=== PATIENT | female | born 1990 | race Caucasian/White ===

== ENCOUNTER → 2022-09-16 14:02 | Outpatient (CLI) | payer OTHER, SELFPAY ==
--- NOTE | 2022-09-16 14:10 | DI.MRI.S_ITS ---
PROCEDURE: MR LOWER LEG RT WO CON INDICATIONS: pain in right knee TECHNIQUE: Noncontrast coronal and sagittal T1 spin echo and STIR; axial T1 spin echo and T2 fast spin echo with fat saturation through the right tibia and fibula. COMPARISON: [facility], MR, MR KNEE RT WO CON, 09/16/2022, 15:01. FINDINGS: Image quality: There is mild inhomogeneous fat saturation. Bones: The visualized bone marrow demonstrates normal overall signal. The overlying cortex appears intact. No fractures lines or intra-osseous mass lesions. No bone contusions or bony erosions. No periosteal reaction. Soft tissues: The scanned muscles demonstrate normal overall bulk and internal signal. Subcutaneous tissues appear normal as well. No soft tissue masses are present. IMPRESSION: 1. No evidence of stress reaction or stress fracture. Dictated by: Fly Jason M.D. on 09/18/2022 at 2:32 Approved by: Fly Jason M.D. on 09/18/2022 at 2:35
--- NOTE | 2022-09-16 14:10 | DI.MRI.S_ITS ---
PROCEDURE: MR KNEE RT WO CON INDICATIONS: pain in right knee TECHNIQUE: Noncontrast sagittal PD fast spin echo and T2 fast spin echo with fat saturation, sagittal 3-D FLASH with fat saturation; coronal T1 spin echo and PD fast spin echo with fat saturation, and axial PD fast spin echo with fat saturation through the knee. COMPARISON: None. FINDINGS: Image quality: There is mild inhomogeneous fat saturation. Menisci: The medial and lateral menisci demonstrate normal morphology and internal signal. The meniscal root ligaments appear intact. Cruciate ligaments: The anterior and posterior cruciate ligaments appear intact. Medial structures: The medial collateral ligament appears intact. The semimembranosus tendon insertions and meniscocapsular junction appear intact. Visualized portions of the pes anserinus tendons appear intact without associated bursal fluid collections. Lateral structures: The lateral collateral ligament, long and short heads of the biceps femoris tendon appear intact. The popliteus tendon appears intact. Iliotibial band appears normal. Anterior structures: The quadriceps and patellar tendons appear intact. There is slight lateral tilt of the patella. No femoral trochlear dysplasia or ventral trochlear prominence. There is minimal edema superolaterally in the infrapatellar fat pad. Bones and cartilage: No bone marrow contusions or fractures. The cartilage of the medial and lateral femorotibial compartments, as well as the patellofemoral compartment, appears preserved in overall thickness. Joint space: There is physiologic knee joint fluid. No Strickland's cyst. Normal appearing synovial plicae are incidentally noted. IMPRESSION: 1. Minimal edema superolaterally in the infrapatellar fat pad suggestive of mild impingement. Dictated by: Fly Jason M.D. on 09/18/2022 at 1:54 Approved by: Fly Jason M.D. on 09/18/2022 at 1:58
== END ==
PROVIDERS: PCP Family Medicine; Referring Provider Family Medicine; Visit Provider Family Medicine
DX: M25.561 Pain in right knee (principal)
CPT/HCPCS: 73718; 73721

== ENCOUNTER 2024-02-27 11:15 | Outpatient (RCR) | payer OTHER, SELFPAY ==
--- NOTE | 2023-11-07 13:22 | PT.OIE ---
Current Diagnoses Other specified disorders of muscle (11/07/23) Pelvic muscle wasting (11/07/23) Unspecified urinary incontinence (11/07/23) Visit Care Team Role Provider Type Fiorella Cruz MD Family Provider Non-Staff Primary Care Provider Specialty: Family Practice Address: [address] [place] [address], [id number] Email: Aline oSsa MD Attending Provider Non-Staff Referring Provider Specialty: INSULATION TECHNICIAN Address: [facility]?, [address] [place], [address] Email: Physical Therapy Initial Evaluation PT-OP-A Visit Information Start: 11/07/23 09:04 Freq: Status: Active Protocol: Document 11/07/23 09:45 [facility] (Rec: 11/07/23 10:20 [facility] [id number]) Out-Patient Physical Therapy Visit Information Visit Information Visit Type Initial Evaluation Visit Start Time 09:45 Visit Stop Time 10:30 Visit Number 1 Evaluation Information Evaluation Date 11/07/23 PT-OP-B Current Condition Start: 11/07/23 09:04 Freq: Status: Active Protocol: Document 11/07/23 09:45 [facility] (Rec: 11/07/23 10:20 [facility] [id number]) Current Condition History of Current Condition Onset Date with Current Complaints urinary stress incontinence, pubic pain, L SI pain with History of Current Condition 6 weeks , 8 lb vaginal , one suture on left labia. She started having urine leakage at 14 weeks and she likes to run. She started having to stop frequently, she continued running 28 weeks pregnanct. She would like to get back to running 4-5 miles. With previous PT she noted that she was tight in her pelvic floor. Every other day or every 2 days she has a bowel movement. She will feel pelvic pressure with bowel movement. SHe does use a squatty potty. She had a lot of hip pain and tightness during and she does have stretches. SHe does have some leakage with sneezing and coughing and occasionally with jumping. SHe had a IUD placed on and intercourse 3 days later. She noted pain and bleeding 24 hours afterwards. She felt right sided vaginal pain afterwards. SHe does have some pubic bone pain that she notices after a walk. SHe did have some left sided SI pain with running. Treatment Goals Patient/Caregiver Goals Tita's goals include being able to return to running without leakage Current Functional Impairments (Reported) Functional Limitations- Recreation/ unable to run at this time due Hobbies to weakness, urinary leakage PT-OP-C Subjective Start: 11/07/23 09:04 Freq: Status: Active Protocol: Document 11/07/23 09:45 [facility] (Rec: 11/07/23 13:18 [facility] [id number]) Patient Questionnaires Pelvic Pain and Urgency/Frequency Patient Symptom Scale Pelvic Pain Score 11 OP-PT Pain Assessment Location pubic symphysis Intensity 2 Scale Used Numeric (0 - 10) Description- Other after walking PT-OP-F Manual Assessment Start: 11/07/23 09:04 Freq: Status: Active Protocol: Document 11/07/23 09:45 [facility] (Rec: 11/07/23 12:57 [facility] [id number]) Manual Assessments Soft Tissue Assessment Soft Tissue Mobility Assessment vaginal tissue still healing from with small amounts of bleeding from the right vaginal side wall. right sided iliopsoas and adductor muscle tightness Joint Mobility Assessment Joint Mobility Assessment tenderness at the pubic symphysis and pt reports soreness here after walking PT-OP-I Pelvic Floor Start: 11/07/23 09:04 Freq: Status: Active Protocol: Document 11/07/23 09:45 [facility] (Rec: 11/07/23 12:57 [facility] [id number]) Pelvic Floor Assessment Pelvic Clock Pelvic Clock 12-3 Atrophy Pelvic Clock 3-6 Atrophy Pelvic Clock 6-9 Atrophy Pelvic Clock 9-12 Atrophy Pelvic Clock Other right lateral wall still healing from vaginal delivery 6 weeks ago, pt had intercourse approx 4 days ago and experienced pain and then has had some bleeding following Contraction Ability Voluntary Contraction Weak Voluntary Relaxation Weak Manual Muscle Testing Left 2 Manual Muscle Testing Right 2 Manual Muscle Testing Anterior 1 Manual Muscle Testing Posterior 2 Muscle Endurance (Seconds) 3 PT-OP-K Range of Motion Start: 11/07/23 13:19 Freq: Status: Active Protocol: Document 11/07/23 09:45 [facility] (Rec: 11/07/23 13:20 [facility] [id number]) Hip Goniometric Range of Motion Hip ROM Limitations Hip ROM Limitations Soft Tissue Tightness Comments right sided + stef test for iliopsoas tightness adductor guarding and tightness on the right side PT-OP-Q Treatments Start: 11/07/23 09:04 Freq: Status: Active Protocol: Document 11/07/23 09:45 [facility] (Rec: 11/07/23 12:54 [facility] [id number]) Therapeutic Exercises Supine Exercises supine ball squeeze with pelvic floor engagement Reps/Minutes x 10 reps holding 5 seconds modified squat stretch Side bilateral Reps/Minutes hold 1-2 minutes PT-OP-T Assessment and Plan Start: 11/07/23 09:04 Freq: Status: Active Protocol: Document 11/07/23 09:45 [facility] (Rec: 11/07/23 13:00 [facility] [id number]) Physical Therapy Assessment Rehab Potential Rehabilitation Potential Excellent Evaluation Complexity Number of Personal Factors/Comorbidities 0 Number of Body Systems Impaired 1-2 Clinical Presentation at Evaluation Stable Impairments Impairments Activity Tolerance,Pain,Soft Tissue Mobility,Strength,Tone Other Impairments urinary stress incontinence Goals 3 Impairment SI joint instability with c/o pain at the pubic symphysis after walking Group Home Goal (LTG) With improved SI stability Tita is no longer c/o pubic symphysis pain after walking or as she returns to running LTG Duration 12 weeks 2 Impairment Decreased pelvic floor endurance Short Term Goal (STG) Tita is able to sustain a pelvic floor contraction x 10 seconds in supine STG Duration 4 Acid Cutter Goal (LTG) Tita is able to sustain a pelvic floor contraction in standing x5 seconds LTG Duration 12 weeks 1 Impairment core weakness with urinary leakage limiting her abilty to run Short Term Goal (STG) Tita is educated on a home stabilization program to support the bladder and improve core strength STG Duration 4 weeks Group Home Goal (LTG) Tita is able to return to a running program without urinary leakage LTG Duration 12 weeks Assessment Summary Assessment Tita is a 32 year old female 6 weeks post with a vaginal delivery. She is a runner and likes to run 4 -5 miles 3-4 days per week. She has not returned to running yet post but would like to and was experiencing urinary leakage with running during her . Tita has tried out walking and notes she will feel pubic bone discomfort for a while after her walks. She had a IUD put in last week and did have intercourse for the first time since childbirth. She reports at a point she had pain and then has been experiencing light bleeding since then. With exam today Tita does present with post SI joint instability and tenderness to palpation at the pubic symphysis. WIth pelvic floor examination she is able to facilitate all leyva of the levator ani however she is weakest on the anterior wall and primarily right anterior wall. She has difficulty relaxing the lateral leyva once she has tightened her pelvic floor. Tita has difficulty sustaining a pelvic floor contraction for more than a few seconds. There is a small amount of vaginal tissue irritation on the right lateral wall with a small amount of bleeding. We talked about waiting another week prior to intercourse again and I did start her with some gentle stabilization exercises of the pelvic floor and SI joint today. Treatment will work on improving pelvic floor strength and endurance as well as transverse abdominal strengthening to provide good pelvic support and eventually get her back to a running program. She is a good candidate for PT Physical Therapy Plan Frequency and Duration Frequency of Treatment 1x/Week Duration of treatment (weeks) 12 Plan of Care Start Date 11/07/23 Plan of Care End Date 01/30/24 Therapeutic Interventions Therapeutic Interventions Home Exercise Program,Manual Therapy,Neuromuscular Re- education,Self-Care/Home Management,Therapeutic Exercises Modalities Biofeedback
--- NOTE | 2023-11-07 13:23 | PT.OPPOC ---
Physical, Occupational & Speech Therapy At [facility] Current Diagnoses Other specified disorders of muscle (11/07/23) Pelvic muscle wasting (11/07/23) Unspecified urinary incontinence (11/07/23) Visit Care Team Role Provider Type Fiorella Cruz MD Family Provider Non-Staff Primary Care Provider Specialty: Family Practice Address: [address] [place] [address], [address] Email: Aline Sosa MD Attending Provider Non-Staff Referring Provider Specialty: OPTICAL ADVISOR Address: [facility]?, [address] [facility], [place], [address] Email: Plan Of Care PT-OP-T Assessment and Plan Start: 11/07/23 09:04 Freq: Status: Active Protocol: Document 11/07/23 09:45 [facility] (Rec: 11/07/23 13:00 [facility] [id number]) Physical Therapy Assessment Rehab Potential Rehabilitation Potential Excellent Evaluation Complexity Number of Personal Factors/Comorbidities 0 Number of Body Systems Impaired 1-2 Clinical Presentation at Evaluation Stable Impairments Impairments Activity Tolerance,Pain,Soft Tissue Mobility,Strength,Tone Other Impairments urinary stress incontinence Goals 3 Impairment SI joint instability with c/o pain at the pubic symphysis after walking Long-Term Goal (LTG) With improved SI stability Tita is no longer c/o pubic symphysis pain after walking or as she returns to running LTG Duration 12 weeks 2 Impairment Decreased pelvic floor endurance Short Term Goal (STG) Tita is able to sustain a pelvic floor contraction x 10 seconds in supine STG Duration 4 Vp Outcomes Goal (LTG) Tita is able to sustain a pelvic floor contraction in standing x5 seconds LTG Duration 12 weeks 1 Impairment core weakness with urinary leakage limiting her abilty to run Short Term Goal (STG) Tiat is educated on a home stabilization program to support the bladder and improve core strength STG Duration 4 weeks Vp Outcomes Goal (LTG) Tita is able to return to a running program without urinary leakage LTG Duration 12 weeks Assessment Summary Assessment Tita is a 32 year old female 6 weeks post with a vaginal delivery. She is a runner and likes to run 4 -5 miles 3-4 days per week. She has not returned to running yet post but would like to and was experiencing urinary leakage with running during her . Tita has tried out walking and notes she will feel pubic bone discomfort for a while after her walks. She had a IUD put in last week and did have intercourse for the first time since childbirth. She reports at a point she had pain and then has been experiencing light bleeding since then. With exam today Tita does present with post SI joint instability and tenderness to palpation at the pubic symphysis. WIth pelvic floor examination she is able to facilitate all leyva of the levator ani however she is weakest on the anterior wall and primarily right anterior wall. She has difficulty relaxing the lateral leyva once she has tightened her pelvic floor. Tita has difficulty sustaining a pelvic floor contraction for more than a few seconds. There is a small amount of vaginal tissue irritation on the right lateral wall with a small amount of bleeding. We talked about waiting another week prior to intercourse again and I did start her with some gentle stabilization exercises of the pelvic floor and SI joint today. Treatment will work on improving pelvic floor strength and endurance as well as transverse abdominal strengthening to provide good pelvic support and eventually get her back to a running program. She is a good candidate for PT Physical Therapy Plan Frequency and Duration Frequency of Treatment 1x/Week Duration of treatment (weeks) 12 Plan of Care Start Date 11/07/23 Plan of Care End Date 01/30/24 Therapeutic Interventions Therapeutic Interventions Home Exercise Program,Manual Therapy,Neuromuscular Re- education,Self-Care/Home Management,Therapeutic Exercises Modalities Biofeedback Plan of Care Dates Plan of Care Start Date 11/07/23 Plan of Care End Date 01/30/24 Electronically Signed by: Pia Washington, PT 11/07/23 1755 If you are in agreement with this Plan of Care, please return a signed and dated copy. I have reviewed this Plan of Care and certify that the skilled therapy services above are required to meet the patient?s needs. Physician Signature Date Printed Name and Credentials Clinical Instructor Signature Printed Name and Credentials
--- NOTE | 2023-11-21 12:29 | PT.OTN ---
Current Diagnoses Other specified disorders of muscle (11/21/23) Pelvic muscle wasting (11/21/23) Unspecified urinary incontinence (11/21/23) Physical Therapy Treatment Note PT-OP-A Visit Information Start: 11/07/23 09:04 Freq: Status: Active Protocol: Document 11/21/23 08:14 [facility] (Rec: 11/21/23 09:03 [facility] [id number]) Out-Patient Physical Therapy Visit Information Visit Information Visit Type Treatment Note Visit Start Time 08:15 Visit Stop Time 09:00 Visit Number 2 PT-OP-B Current Condition Start: 11/07/23 09:04 Freq: Status: Active Protocol: Document 11/07/23 09:45 [facility] (Rec: 11/07/23 10:20 [facility] [id number]) Current Condition History of Current Condition Onset Date with Current Complaints urinary stress incontinence, pubic pain, L SI pain with History of Current Condition 6 weeks , 8 lb vaginal , one suture on left labia. She started having urine leakage at 14 weeks and she likes to run. She started having to stop frequently, she continued running 28 weeks pregnanct. She would like to get back to running 4-5 miles. With previous PT she noted that she was tight in her pelvic floor. Every other day or every 2 days she has a bowel movement. She will feel pelvic pressure with bowel movement. SHe does use a squatty potty. She had a lot of hip pain and tightness during and she does have stretches. SHe does have some leakage with sneezing and coughing and occasionally with jumping. SHe had a IUD placed on and intercourse 3 days later. She noted pain and bleeding 24 hours afterwards. She felt right sided vaginal pain afterwards. SHe does have some pubic bone pain that she notices after a walk. SHe did have some left sided SI pain with running. Treatment Goals Patient/Caregiver Goals Tita's goals include being able to return to running without leakage Current Functional Impairments (Reported) Functional Limitations- Recreation/ unable to run at this time due Hobbies to weakness, urinary leakage PT-OP-C Subjective Start: 11/07/23 09:04 Freq: Status: Active Protocol: Document 11/21/23 08:14 [facility] (Rec: 11/21/23 09:03 [facility] [id number]) OP-PT Subjective Patient Comments Patient Comments still having pain during intercourse and will be scheduled for a ultrasound to check on iud placement she notes she is walking 3-5 mile walks and is not having the pubic pain Patient Reported Progress Improving PT-OP-F Manual Assessment Start: 11/07/23 09:04 Freq: Status: Active Protocol: Document 11/07/23 09:45 [facility] (Rec: 11/07/23 12:57 [facility] [id number]) Manual Assessments Soft Tissue Assessment Soft Tissue Mobility Assessment vaginal tissue still healing from with small amounts of bleeding from the right vaginal side wall. right sided iliopsoas and adductor muscle tightness Joint Mobility Assessment Joint Mobility Assessment tenderness at the pubic symphysis and pt reports soreness here after walking PT-OP-I Pelvic Floor Start: 11/07/23 09:04 Freq: Status: Active Protocol: Document 11/07/23 09:45 [facility] (Rec: 11/07/23 12:57 [facility] [id number]) Pelvic Floor Assessment Pelvic Clock Pelvic Clock 12-3 Atrophy Pelvic Clock 3-6 Atrophy Pelvic Clock 6-9 Atrophy Pelvic Clock 9-12 Atrophy Pelvic Clock Other right lateral wall still healing from vaginal delivery 6 weeks ago, pt had intercourse approx 4 days ago and experienced pain and then has had some bleeding following Contraction Ability Voluntary Contraction Weak Voluntary Relaxation Weak Manual Muscle Testing Left 2 Manual Muscle Testing Right 2 Manual Muscle Testing Anterior 1 Manual Muscle Testing Posterior 2 Muscle Endurance (Seconds) 3 PT-OP-K Range of Motion Start: 11/07/23 13:19 Freq: Status: Active Protocol: Document 11/07/23 09:45 [facility] (Rec: 11/07/23 13:20 [facility] [id number]) Hip Goniometric Range of Motion Hip ROM Limitations Hip ROM Limitations Soft Tissue Tightness Comments right sided + stef test for iliopsoas tightness adductor guarding and tightness on the right side PT-OP-Q Treatments Start: 11/07/23 09:04 Freq: Status: Active Protocol: Document 11/21/23 08:14 [facility] (Rec: 11/21/23 09:03 [facility] [id number]) Therapeutic Exercises Supine Exercises TA with march Reps/Minutes x 10 reps Comments level 1 and level 2 foam roll Reps/Minutes hold 1-2 min modified squat stretch Side bilateral Reps/Minutes hold 1-2 minutes Sidelying Exercises clam shells Reps/Minutes 3 x 10 reps Other Exercises thread the needle Reps/Minutes x 5 each side jessie pose Reps/Minutes hold 1-2 min quadruped side bends Reps/Minutes x 10 cat cow Reps/Minutes x 10 reps PT-OP-T Assessment and Plan Start: 11/07/23 09:04 Freq: Status: Active Protocol: Document 11/21/23 12:21 [facility] (Rec: 11/21/23 12:29 [facility] [id number]) Physical Therapy Assessment Assessment Summary Assessment I added on TA stabilization, foam roll stretching for the anterior chest and thoracic spine and spinal mobilization as she is very tight in the thoracic spine. She did do a 5 mile walk yesterday and was feeling some soreness in her low back today. After the stretches she did much better with core activiation Physical Therapy Plan Frequency and Duration Frequency of Treatment 1x/Week Duration of treatment (weeks) 12 Plan of Care Start Date 11/07/23 Plan of Care End Date 01/30/24 Therapeutic Interventions Therapeutic Interventions Home Exercise Program,Manual Therapy,Neuromuscular Re- education,Self-Care/Home Management,Therapeutic Exercises Modalities Biofeedback Next Visit Focus/Plan Next Note Type Treatment Note Next Visit Plan review all established exercises and start EMG biofeedback next visit if pt is able to tolerate the vaginal sensor
--- NOTE | 2023-11-28 13:06 | PT.OTN ---
Current Diagnoses Other specified disorders of muscle (11/28/23) Pelvic muscle wasting (11/28/23) Unspecified urinary incontinence (11/28/23) Physical Therapy Treatment Note PT-OP-A Visit Information Start: 11/07/23 09:04 Freq: Status: Active Protocol: Document 11/28/23 09:47 [facility] (Rec: 11/28/23 10:12 [facility] [id number]) Out-Patient Physical Therapy Visit Information Visit Information Visit Type Treatment Note Visit Start Time 09:50 Visit Stop Time 10:30 Visit Number 3 PT-OP-B Current Condition Start: 11/07/23 09:04 Freq: Status: Active Protocol: Document 11/07/23 09:45 [facility] (Rec: 11/07/23 10:20 [facility] [id number]) Current Condition History of Current Condition Onset Date with Current Complaints urinary stress incontinence, pubic pain, L SI pain with History of Current Condition 6 weeks , 8 lb vaginal , one suture on left labia. She started having urine leakage at 14 weeks and she likes to run. She started having to stop frequently, she continued running 28 weeks pregnanct. She would like to get back to running 4-5 miles. With previous PT she noted that she was tight in her pelvic floor. Every other day or every 2 days she has a bowel movement. She will feel pelvic pressure with bowel movement. SHe does use a squatty potty. She had a lot of hip pain and tightness during and she does have stretches. SHe does have some leakage with sneezing and coughing and occasionally with jumping. SHe had a IUD placed on and intercourse 3 days later. She noted pain and bleeding 24 hours afterwards. She felt right sided vaginal pain afterwards. SHe does have some pubic bone pain that she notices after a walk. SHe did have some left sided SI pain with running. Treatment Goals Patient/Caregiver Goals Tita's goals include being able to return to running without leakage Current Functional Impairments (Reported) Functional Limitations- Recreation/ unable to run at this time due Hobbies to weakness, urinary leakage PT-OP-C Subjective Start: 11/07/23 09:04 Freq: Status: Active Protocol: Document 11/28/23 09:47 [facility] (Rec: 11/28/23 10:12 [facility] [id number]) OP-PT Subjective Patient Comments Patient Comments no ultrasound yet, she is noticiing she is pronating more on her right side and she is having feeling of right side pronation with walking especially down she notes the pubic bone feels great PT-OP-F Manual Assessment Start: 11/07/23 09:04 Freq: Status: Active Protocol: Document 11/07/23 09:45 [facility] (Rec: 11/07/23 12:57 [facility] [id number]) Manual Assessments Soft Tissue Assessment Soft Tissue Mobility Assessment vaginal tissue still healing from with small amounts of bleeding from the right vaginal side wall. right sided iliopsoas and adductor muscle tightness Joint Mobility Assessment Joint Mobility Assessment tenderness at the pubic symphysis and pt reports soreness here after walking PT-OP-I Pelvic Floor Start: 11/07/23 09:04 Freq: Status: Active Protocol: Document 11/07/23 09:45 [facility] (Rec: 11/07/23 12:57 [facility] [id number]) Pelvic Floor Assessment Pelvic Clock Pelvic Clock 12-3 Atrophy Pelvic Clock 3-6 Atrophy Pelvic Clock 6-9 Atrophy Pelvic Clock 9-12 Atrophy Pelvic Clock Other right lateral wall still healing from vaginal delivery 6 weeks ago, pt had intercourse approx 4 days ago and experienced pain and then has had some bleeding following Contraction Ability Voluntary Contraction Weak Voluntary Relaxation Weak Manual Muscle Testing Left 2 Manual Muscle Testing Right 2 Manual Muscle Testing Anterior 1 Manual Muscle Testing Posterior 2 Muscle Endurance (Seconds) 3 PT-OP-K Range of Motion Start: 11/07/23 13:19 Freq: Status: Active Protocol: Document 11/07/23 09:45 [facility] (Rec: 11/07/23 13:20 [facility] [id number]) Hip Goniometric Range of Motion Hip ROM Limitations Hip ROM Limitations Soft Tissue Tightness Comments right sided + stef test for iliopsoas tightness adductor guarding and tightness on the right side PT-OP-Q Treatments Start: 11/07/23 09:04 Freq: Status: Active Protocol: Document 11/28/23 09:47 [facility] (Rec: 11/28/23 10:12 [facility] [id number]) Therapeutic Exercises Supine Exercises pelvic floor long holds Reps/Minutes 3-5 sec hold TA with october Reps/Minutes x 10 reps Comments level 1 and level 2 Neuro Re-Education Treatment Other Activities NMES Comments pelvic floor NMES went to level 12 and could initially feel it on the right side but not as strong as the left side and then she stopped feeling the right side, she is able to feel the anterior part of the pelvic floor. Self-Care/Home Management Treatment Activities Self-Care/Home Management Activities right foot pronation in standing, working on arch exercises and pt was shown superfeet for assist with arches as she was experiencing right foot pain with walking down hill pushing her stroller PT-OP-T Assessment and Plan Start: 11/07/23 09:04 Freq: Status: Active Protocol: Document 11/28/23 09:47 [facility] (Rec: 11/28/23 10:12 [facility] [id number]) Physical Therapy Assessment Goals 3 Impairment SI joint instability with c/o pain at the pubic symphysis after walking Driver/Sales Workers Goal (LTG) With improved SI stability Tita is no longer c/o pubic symphysis pain after walking or as she returns to running LTG Duration 12 weeks 2 Impairment Decreased pelvic floor endurance Short Term Goal (STG) Tita is able to sustain a pelvic floor contraction x 10 seconds in supine STG Duration 4 Jail Goal (LTG) Tita is able to sustain a pelvic floor contraction in standing x5 seconds LTG Duration 12 weeks 1 Impairment core weakness with urinary leakage limiting her abilty to run Short Term Goal (STG) Tita is educated on a home stabilization program to support the bladder and improve core strength STG Duration 4 weeks Jail Goal (LTG) Tita is able to return to a running program without urinary leakage LTG Duration 12 weeks Assessment Summary Assessment time was spent working on standing balance looking at right foot pronation, pt was educated in the use of super feet. We started NMES for the pelvic floor today as well as EMG biofeedback. Tita is able to feel the anterior wall and felt the left lateral wall greater th an the right side. She was given pelvic floor exercise to begin with for home. She is awaiting a ultrasound to look at IUD placement and has experienced some pain. I did tell her not to push through any pain with her exercises. Physical Therapy Plan Frequency and Duration Frequency of Treatment 1x/Week Duration of treatment (weeks) 12 Plan of Care Start Date 11/07/23 Plan of Care End Date 01/30/24 Therapeutic Interventions Therapeutic Interventions Home Exercise Program,Manual Therapy,Neuromuscular Re- education,Self-Care/Home Management,Therapeutic Exercises Modalities Biofeedback Next Visit Focus/Plan Next Note Type Treatment Note Next Visit Plan check in with how Tita did with the NMES and biofeedback this visit and progress exercises as seh can tolerate.
--- NOTE | 2023-12-05 16:22 | PT.OTN ---
Current Diagnoses Other specified disorders of muscle (12/05/23) Pelvic muscle wasting (12/05/23) Unspecified urinary incontinence (12/05/23) Physical Therapy Treatment Note PT-OP-A Visit Information Start: 11/07/23 09:04 Freq: Status: Active Protocol: Document 12/05/23 09:44 [facility] (Rec: 12/05/23 10:01 [facility] [id number]) Out-Patient Physical Therapy Visit Information Visit Information Visit Type Treatment Note Visit Start Time 09:45 Visit Stop Time 10:30 Visit Number 4 PT-OP-B Current Condition Start: 11/07/23 09:04 Freq: Status: Active Protocol: Document 11/07/23 09:45 [facility] (Rec: 11/07/23 10:20 [facility] [id number]) Current Condition History of Current Condition Onset Date with Current Complaints urinary stress incontinence, pubic pain, L SI pain with History of Current Condition 6 weeks , 8 lb vaginal , one suture on left labia. She started having urine leakage at 14 weeks and she likes to run. She started having to stop frequently, she continued running 28 weeks pregnanct. She would like to get back to running 4-5 miles. With previous PT she noted that she was tight in her pelvic floor. Every other day or every 2 days she has a bowel movement. She will feel pelvic pressure with bowel movement. SHe does use a squatty potty. She had a lot of hip pain and tightness during and she does have stretches. SHe does have some leakage with sneezing and coughing and occasionally with jumping. SHe had a IUD placed on and intercourse 3 days later. She noted pain and bleeding 24 hours afterwards. She felt right sided vaginal pain afterwards. SHe does have some pubic bone pain that she notices after a walk. SHe did have some left sided SI pain with running. Treatment Goals Patient/Caregiver Goals Tita's goals include being able to return to running without leakage Current Functional Impairments (Reported) Functional Limitations- Recreation/ unable to run at this time due Hobbies to weakness, urinary leakage PT-OP-C Subjective Start: 11/07/23 09:04 Freq: Status: Active Protocol: Document 12/05/23 09:44 [facility] (Rec: 12/05/23 10:01 [facility] [id number]) OP-PT Subjective Patient Comments Patient Comments pt notes she is scheduled december 23 for a ultrasound. She still has pain with intercourse SHe is no longer bleeding. No c/o pubic pain any more PT-OP-F Manual Assessment Start: 11/07/23 09:04 Freq: Status: Active Protocol: Document 11/07/23 09:45 [facility] (Rec: 11/07/23 12:57 [facility] [id number]) Manual Assessments Soft Tissue Assessment Soft Tissue Mobility Assessment vaginal tissue still healing from with small amounts of bleeding from the right vaginal side wall. right sided iliopsoas and adductor muscle tightness Joint Mobility Assessment Joint Mobility Assessment tenderness at the pubic symphysis and pt reports soreness here after walking PT-OP-I Pelvic Floor Start: 11/07/23 09:04 Freq: Status: Active Protocol: Document 11/07/23 09:45 [facility] (Rec: 11/07/23 12:57 [facility] [id number]) Pelvic Floor Assessment Pelvic Clock Pelvic Clock 12-3 Atrophy Pelvic Clock 3-6 Atrophy Pelvic Clock 6-9 Atrophy Pelvic Clock 9-12 Atrophy Pelvic Clock Other right lateral wall still healing from vaginal delivery 6 weeks ago, pt had intercourse approx 4 days ago and experienced pain and then has had some bleeding following Contraction Ability Voluntary Contraction Weak Voluntary Relaxation Weak Manual Muscle Testing Left 2 Manual Muscle Testing Right 2 Manual Muscle Testing Anterior 1 Manual Muscle Testing Posterior 2 Muscle Endurance (Seconds) 3 PT-OP-K Range of Motion Start: 11/07/23 13:19 Freq: Status: Active Protocol: Document 11/07/23 09:45 [facility] (Rec: 11/07/23 13:20 [facility] [id number]) Hip Goniometric Range of Motion Hip ROM Limitations Hip ROM Limitations Soft Tissue Tightness Comments right sided + stef test for iliopsoas tightness adductor guarding and tightness on the right side PT-OP-Q Treatments Start: 11/07/23 09:04 Freq: Status: Active Protocol: Document 12/05/23 09:44 [facility] (Rec: 12/05/23 10:01 [facility] [id number]) Therapeutic Exercises Supine Exercises hip roll out with theraband Reps/Minutes x 10 reps Comments level 3 theraband Neuro Re-Education Treatment Other Activities NMES Details with pelvic vaginal sensor Comments went to 15 on NMES and she is still not feeling it on the right side PT-OP-T Assessment and Plan Start: 11/07/23 09:04 Freq: Status: Active Protocol: Document 12/05/23 09:44 [facility] (Rec: 12/05/23 10:01 [facility] [id number]) Physical Therapy Assessment Goals 3 Impairment SI joint instability with c/o pain at the pubic symphysis after walking Cider Maker Goal (LTG) With improved SI stability Tita is no longer c/o pubic symphysis pain after walking or as she returns to running LTG Duration 12 weeks 2 Impairment Decreased pelvic floor endurance Short Term Goal (STG) Tita is able to sustain a pelvic floor contraction x 10 seconds in supine STG Duration 4 Senior Living Goal (LTG) Tita is able to sustain a pelvic floor contraction in standing x5 seconds LTG Duration 12 weeks 1 Impairment core weakness with urinary leakage limiting her abilty to run Short Term Goal (STG) Tita is educated on a home stabilization program to support the bladder and improve core strength STG Duration 4 weeks Senior Living Goal (LTG) Tita is able to return to a running program without urinary leakage LTG Duration 12 weeks Assessment Summary Assessment Added hip roll outs with becca pt showing improvement with pelvic floor recruitment, she still does not feel the NMES evenly on all leyva of the levator ani Physical Therapy Plan Frequency and Duration Frequency of Treatment 1x/Week Duration of treatment (weeks) 12 Plan of Care Start Date 11/07/23 Plan of Care End Date 01/30/24 Therapeutic Interventions Therapeutic Interventions Home Exercise Program,Manual Therapy,Neuromuscular Re- education,Self-Care/Home Management,Therapeutic Exercises Modalities Biofeedback Next Visit Focus/Plan Next Note Type Treatment Note Next Visit Plan Continue with EMG biofeedback next visit and core strengthening
--- NOTE | 2023-12-12 13:30 | PT.OTN ---
Current Diagnoses Other specified disorders of muscle (12/12/23) Pelvic muscle wasting (12/12/23) Unspecified urinary incontinence (12/12/23) Physical Therapy Treatment Note PT-OP-A Visit Information Start: 11/07/23 09:04 Freq: Status: Active Protocol: Document 12/12/23 09:45 [facility] (Rec: 12/12/23 10:32 [facility] [id number]) Out-Patient Physical Therapy Visit Information Visit Information Visit Type Treatment Note Visit Start Time 09:45 Visit Stop Time 10:30 Visit Number 5 Evaluation Information Evaluation Date 11/07/23 PT-OP-B Current Condition Start: 11/07/23 09:04 Freq: Status: Active Protocol: Document 11/07/23 09:45 [facility] (Rec: 11/07/23 10:20 [facility] [id number]) Current Condition History of Current Condition Onset Date with Current Complaints urinary stress incontinence, pubic pain, L SI pain with History of Current Condition 6 weeks , 8 lb vaginal , one suture on left labia. She started having urine leakage at 14 weeks and she likes to run. She started having to stop frequently, she continued running 28 weeks pregnanct. She would like to get back to running 4-5 miles. With previous PT she noted that she was tight in her pelvic floor. Every other day or every 2 days she has a bowel movement. She will feel pelvic pressure with bowel movement. SHe does use a squatty potty. She had a lot of hip pain and tightness during and she does have stretches. SHe does have some leakage with sneezing and coughing and occasionally with jumping. SHe had a IUD placed on and intercourse 3 days later. She noted pain and bleeding 24 hours afterwards. She felt right sided vaginal pain afterwards. SHe does have some pubic bone pain that she notices after a walk. SHe did have some left sided SI pain with running. Treatment Goals Patient/Caregiver Goals Tita's goals include being able to return to running without leakage Current Functional Impairments (Reported) Functional Limitations- Recreation/ unable to run at this time due Hobbies to weakness, urinary leakage PT-OP-C Subjective Start: 11/07/23 09:04 Freq: Status: Active Protocol: Document 12/12/23 09:45 [facility] (Rec: 12/12/23 10:32 [facility] [id number]) OP-PT Subjective Patient Comments Patient Comments pt notes she started bleeding again a couple of days ago but its very light. December 23 she is scheduled for her ultrasound to check on the IUD . She reports her can feel the IUD with intercourse and she feels it is irritating her tissues. pt notes she feels like her biggest problem right now is pelvic floor relaxation. She has only leaked with coughed and sneezed. She is feeling more stable now with her SI joint PT-OP-F Manual Assessment Start: 11/07/23 09:04 Freq: Status: Active Protocol: Document 11/07/23 09:45 [facility] (Rec: 11/07/23 12:57 [facility] [id number]) Manual Assessments Soft Tissue Assessment Soft Tissue Mobility Assessment vaginal tissue still healing from with small amounts of bleeding from the right vaginal side wall. right sided iliopsoas and adductor muscle tightness Joint Mobility Assessment Joint Mobility Assessment tenderness at the pubic symphysis and pt reports soreness here after walking PT-OP-I Pelvic Floor Start: 11/07/23 09:04 Freq: Status: Active Protocol: Document 12/12/23 09:45 [facility] (Rec: 12/12/23 10:42 [facility] [id number]) Pelvic Floor Assessment Pelvic Clock Pelvic Clock 12-3 Atrophy Pelvic Clock 3-6 Atrophy Pelvic Clock 6-9 Atrophy Pelvic Clock 9-12 Atrophy Pelvic Clock Other right lateral wall still healing from vaginal delivery 6 weeks ago, pt had intercourse approx 4 days ago and experienced pain and then has had some bleeding following PT-OP-K Range of Motion Start: 11/07/23 13:19 Freq: Status: Active Protocol: Document 11/07/23 09:45 [facility] (Rec: 11/07/23 13:20 [facility] [id number]) Hip Goniometric Range of Motion Hip ROM Limitations Hip ROM Limitations Soft Tissue Tightness Comments right sided + stef test for iliopsoas tightness adductor guarding and tightness on the right side PT-OP-Q Treatments Start: 11/07/23 09:04 Freq: Status: Active Protocol: Document 12/12/23 09:45 [facility] (Rec: 12/12/23 10:32 [facility] [id number]) Therapeutic Exercises Supine Exercises resting tone Supine Exercise Name pelvic floor Comments resting tone is 3.8-4.2 uv hip roll out with theraband Reps/Minutes x 10 reps Comments level 3 theraband pelvic floor long holds Reps/Minutes 10 second hold x 10 sec rest Comments average 11.9 and max 36.6 uv PT-OP-T Assessment and Plan Start: 11/07/23 09:04 Freq: Status: Active Protocol: Document 12/12/23 09:45 [facility] (Rec: 12/12/23 10:42 [facility] [id number]) Physical Therapy Assessment Goals 3 Impairment SI joint instability with c/o pain at the pubic symphysis after walking Upholstery Covers Inspector Goal (LTG) With improved SI stability Tita is no longer c/o pubic symphysis pain after walking or as she returns to running excellent progress, no pubic pain with walking now and Tita will work towards progression to running next LTG Duration 12 weeks 2 Impairment Decreased pelvic floor endurance Short Term Goal (STG) Tita is able to sustain a pelvic floor contraction x 10 seconds in supine slowly improving STG Duration 4 Assisted Goal (LTG) Tita is able to sustain a pelvic floor contraction in standing x5 seconds goal not yet met LTG Duration 12 weeks 1 Impairment core weakness with urinary leakage limiting her abilty to run Short Term Goal (STG) Tita is educated on a home stabilization program to support the bladder and improve core strength excellent progress STG Duration 4 weeks Assisted Goal (LTG) Tita is able to return to a running program without urinary leakage pt has not yet returned to running LTG Duration 12 weeks Assessment Summary Assessment Tita has been seen x 6 visits for pelvic floor and core strengthening. She is doing better overall with her SI stability and is no longer experiencing pubic pain after walking. Leakage has decreased and she is only noting mild leakage with strong cough or sneeze. She has not yet returned to running but that is in her near future. She has been working on pelvic floor strength and endurance is slowly improving but she still fatigues prior to 10 second hold. She also has a elevated resting tone of the pelvic floor and we have week working on hip stretches to help fully relax the pelvic floor. At time of her eval she was still healing from the right lateral wall and was experiencing some light bleeding after intercourse. She had a IUD put in at 6 weeks and she feels the irritation she is feeling may be from the IUD. She has been experiencing breakthrough bleeding recently with dried brown blood. She is awaiting her ultrasound for her IUD but it is scheduled December 24. She does still show some elevated tone of the pelvic floor with difficulty relaxing and I am not sure if it is from tissue irritation/pain. At this point she will continue with pelvic floor stretches and strengthening as she is able to do that without pain. Tita would benefit from continued PT Physical Therapy Plan Frequency and Duration Frequency of Treatment 1x/Week Duration of treatment (weeks) 12 Plan of Care Start Date 12/12/23 Plan of Care End Date 03/05/24 Therapeutic Interventions Therapeutic Interventions Home Exercise Program,Manual Therapy,Neuromuscular Re- education,Self-Care/Home Management,Therapeutic Exercises Modalities Biofeedback Next Visit Focus/Plan Next Note Type Treatment Note Next Visit Plan Continue with EMG biofeedback next visit and core strengthening working on both her endurance as well as relaxed awareness of the pelvic floor.
--- NOTE | 2023-12-12 13:30 | PT.OPPOC ---
Physical, Occupational & Speech Therapy At [facility] Current Diagnoses Other specified disorders of muscle (12/12/23) Pelvic muscle wasting (12/12/23) Unspecified urinary incontinence (12/12/23) Visit Care Team Role Provider Type Fiorella Cruz MD Family Provider Non-Staff Primary Care Provider Specialty: Family Practice Address: [address] [place] [address], [id number] Email: Aline Sosa MD Attending Provider Non-Staff Referring Provider Specialty: FAMILY SERVICES COORDINATOR Address: [facility]?, [address], [place], [address] Email: Plan Of Care PT-OP-T Assessment and Plan Start: 11/07/23 09:04 Freq: Status: Active Protocol: Document 12/12/23 09:45 [facility] (Rec: 12/12/23 10:42 [facility] [id number]) Physical Therapy Assessment Goals 3 Impairment SI joint instability with c/o pain at the pubic symphysis after walking Forms Examiner Goal (LTG) With improved SI stability Tita is no longer c/o pubic symphysis pain after walking or as she returns to running excellent progress, no pubic pain with walking now and Tita will work towards progression to running next LTG Duration 12 weeks 2 Impairment Decreased pelvic floor endurance Short Term Goal (STG) Tita is able to sustain a pelvic floor contraction x 10 seconds in supine slowly improving STG Duration 4 [facility] Goal (LTG) Tita is able to sustain a pelvic floor contraction in standing x5 seconds goal not yet met LTG Duration 12 weeks 1 Impairment core weakness with urinary leakage limiting her abilty to run Short Term Goal (STG) Tita is educated on a home stabilization program to support the bladder and improve core strength excellent progress STG Duration 4 weeks Forms Examiner Goal (LTG) Tita is able to return to a running program without urinary leakage pt has not yet returned to running LTG Duration 12 weeks Assessment Summary Assessment Tita has been seen x 6 visits for pelvic floor and core strengthening. She is doing better overall with her SI stability and is no longer experiencing pubic pain after walking. Leakage has decreased and she is only noting mild leakage with strong cough or sneeze. She has not yet returned to running but that is in her near future. She has been working on pelvic floor strength and endurance is slowly improving but she still fatigues prior to 10 second hold. She also has a elevated resting tone of the pelvic floor and we have week working on hip stretches to help fully relax the pelvic floor. At time of her eval she was still healing from the right lateral wall and was experiencing some light bleeding after intercourse. She had a IUD put in at 6 weeks and she feels the irritation she is feeling may be from the IUD. She has been experiencing breakthrough bleeding recently with dried brown blood. She is awaiting her ultrasound for her IUD but it is scheduled December 24. She does still show some elevated tone of the pelvic floor with difficulty relaxing and I am not sure if it is from tissue irritation/pain. At this point she will continue with pelvic floor stretches and strengthening as she is able to do that without pain. Tita would benefit from continued PT Physical Therapy Plan Frequency and Duration Frequency of Treatment 1x/Week Duration of treatment (weeks) 12 Plan of Care Start Date 12/12/23 Plan of Care End Date 03/05/24 Therapeutic Interventions Therapeutic Interventions Home Exercise Program,Manual Therapy,Neuromuscular Re- education,Self-Care/Home Management,Therapeutic Exercises Modalities Biofeedback Next Visit Focus/Plan Next Note Type Treatment Note Next Visit Plan Continue with EMG biofeedback next visit and core strengthening working on both her endurance as well as relaxed awareness of the pelvic floor. Plan of Care Dates Plan of Care Start Date 12/12/23 Plan of Care End Date 03/05/24 Electronically Signed by: Pia Washington, PT 12/12/23 [id number] If you are in agreement with this Plan of Care, please return a signed and dated copy. I have reviewed this Plan of Care and certify that the skilled therapy services above are required to meet the patient?s needs. Physician Signature Date Printed Name and Credentials Clinical Instructor Signature Printed Name and Credentials
--- NOTE | 2023-12-25 09:46 | PT.OTN ---
Current Diagnoses Other specified disorders of muscle (12/25/23) Pelvic muscle wasting (12/25/23) Unspecified urinary incontinence (12/25/23) Physical Therapy Treatment Note PT-OP-A Visit Information Start: 11/07/23 09:04 Freq: Status: Active Protocol: Document 12/25/23 09:00 [facility] (Rec: 12/25/23 09:45 [facility] [id number]) Out-Patient Physical Therapy Visit Information Visit Information Visit Type Treatment Note Visit Start Time 09:00 Visit Stop Time 09:45 Visit Number 6 Evaluation Information Evaluation Date 11/07/23 PT-OP-B Current Condition Start: 11/07/23 09:04 Freq: Status: Active Protocol: Document 11/07/23 09:45 [facility] (Rec: 11/07/23 10:20 [facility] [id number]) Current Condition History of Current Condition Onset Date with Current Complaints urinary stress incontinence, pubic pain, L SI pain with History of Current Condition 6 weeks , 8 lb vaginal , one suture on left labia. She started having urine leakage at 14 weeks and she likes to run. She started having to stop frequently, she continued running 28 weeks pregnanct. She would like to get back to running 4-5 miles. With previous PT she noted that she was tight in her pelvic floor. Every other day or every 2 days she has a bowel movement. She will feel pelvic pressure with bowel movement. SHe does use a squatty potty. She had a lot of hip pain and tightness during and she does have stretches. SHe does have some leakage with sneezing and coughing and occasionally with jumping. SHe had a IUD placed on and intercourse 3 days later. She noted pain and bleeding 24 hours afterwards. She felt right sided vaginal pain afterwards. SHe does have some pubic bone pain that she notices after a walk. SHe did have some left sided SI pain with running. Treatment Goals Patient/Caregiver Goals Umang's goals include being able to return to running without leakage Current Functional Impairments (Reported) Functional Limitations- Recreation/ unable to run at this time due Hobbies to weakness, urinary leakage PT-OP-C Subjective Start: 11/07/23 09:04 Freq: Status: Active Protocol: Document 12/25/23 09:00 [facility] (Rec: 12/25/23 09:45 [facility] [id number]) OP-PT Subjective Patient Comments Patient Comments pt had her ultrasound done yesterday and she has the results today. She notes the IUD is in the right place. Bleeding has gotten better, pain is better. Umang went for 1 mile run and didn't leak but did feel like she had to void PT-OP-F Manual Assessment Start: 11/07/23 09:04 Freq: Status: Active Protocol: Document 11/07/23 09:45 [facility] (Rec: 11/07/23 12:57 [facility] [id number]) Manual Assessments Soft Tissue Assessment Soft Tissue Mobility Assessment vaginal tissue still healing from with small amounts of bleeding from the right vaginal side wall. right sided iliopsoas and adductor muscle tightness Joint Mobility Assessment Joint Mobility Assessment tenderness at the pubic symphysis and pt reports soreness here after walking PT-OP-I Pelvic Floor Start: 11/07/23 09:04 Freq: Status: Active Protocol: Document 12/12/23 09:45 [facility] (Rec: 12/12/23 10:42 [facility] [id number]) Pelvic Floor Assessment Pelvic Clock Pelvic Clock 12-3 Atrophy Pelvic Clock 3-6 Atrophy Pelvic Clock 6-9 Atrophy Pelvic Clock 9-12 Atrophy Pelvic Clock Other right lateral wall still healing from vaginal delivery 6 weeks ago, pt had intercourse approx 4 days ago and experienced pain and then has had some bleeding following PT-OP-K Range of Motion Start: 11/07/23 13:19 Freq: Status: Active Protocol: Document 11/07/23 09:45 [facility] (Rec: 11/07/23 13:20 [facility] [id number]) Hip Goniometric Range of Motion Hip ROM Limitations Hip ROM Limitations Soft Tissue Tightness Comments right sided + stef test for iliopsoas tightness adductor guarding and tightness on the right side PT-OP-Q Treatments Start: 11/07/23 09:04 Freq: Status: Active Protocol: Document 12/25/23 09:00 [facility] (Rec: 12/25/23 09:45 [facility] [id number]) Therapeutic Exercises Supine Exercises quick flicks Supine Exercise Name start next visit EMG biofeedback templates for coordination and eccentric control Reps/Minutes 8 min resting tone Comments resting tone 2.7 uv hip roll out with theraband Reps/Minutes x 10 reps Comments level 3 theraband pelvic floor long holds Reps/Minutes 10 second hold x 10 sec rest Comments 12.9 average and max of24.4 Neuro Re-Education Treatment Other Activities NMES Details with pelvic vaginal sensor Comments went to level 15 and is feeling the sensation right in the center PT-OP-T Assessment and Plan Start: 11/07/23 09:04 Freq: Status: Active Protocol: Document 12/25/23 09:00 [facility] (Rec: 12/25/23 09:45 [facility] [id number]) Physical Therapy Assessment Goals 3 Impairment SI joint instability with c/o pain at the pubic symphysis after walking Field Engineer Goal (LTG) With improved SI stability Umang is no longer c/o pubic symphysis pain after walking or as she returns to running excellent progress, no pubic pain with walking now and Umang will work towards progression to running next LTG Duration 12 weeks 2 Impairment Decreased pelvic floor endurance Short Term Goal (STG) Umang is able to sustain a pelvic floor contraction x 10 seconds in supine slowly improving STG Duration 4 Field Engineer Goal (LTG) Umang is able to sustain a pelvic floor contraction in standing x5 seconds goal not yet met LTG Duration 12 weeks 1 Impairment core weakness with urinary leakage limiting her abilty to run Short Term Goal (STG) Umang is educated on a home stabilization program to support the bladder and improve core strength excellent progress STG Duration 4 weeks Group Home Goal (LTG) Umang is able to return to a running program without urinary leakage pt has not yet returned to running LTG Duration 12 weeks Assessment Summary Assessment Umang was able to run 1 mile and no complaints of pain or leakage but she did feel she had a full bladder, we talked about nicolas kan for running as a bladder splint Physical Therapy Plan Frequency and Duration Frequency of Treatment 1x/Week Duration of treatment (weeks) 12 Plan of Care Start Date 12/12/23 Plan of Care End Date 03/05/24 Therapeutic Interventions Therapeutic Interventions Home Exercise Program,Manual Therapy,Neuromuscular Re- education,Self-Care/Home Management,Therapeutic Exercises Modalities Biofeedback Next Visit Focus/Plan Next Note Type Treatment Note Next Visit Plan Continue with EMG biofeedback next visit and core strengthening working on both her endurance as well as relaxed awareness of the pelvic floor. Add in standing pelvic floor exercises next visit
--- NOTE | 2024-01-22 16:12 | PT.OTN ---
Current Diagnoses Other specified disorders of muscle (01/22/24) Pelvic muscle wasting (01/22/24) Unspecified urinary incontinence (01/22/24) Physical Therapy Treatment Note PT-OP-A Visit Information Start: 11/07/23 09:04 Freq: Status: Active Protocol: Document 01/22/24 15:15 [facility] (Rec: 01/22/24 16:12 [facility] [id number]) Out-Patient Physical Therapy Visit Information Visit Information Visit Type Treatment Note Visit Start Time 15:15 Visit Stop Time 16:00 Visit Number 7 PT-OP-B Current Condition Start: 11/07/23 09:04 Freq: Status: Active Protocol: Document 11/07/23 09:45 [facility] (Rec: 11/07/23 10:20 [facility] [id number]) Current Condition History of Current Condition Onset Date with Current Complaints urinary stress incontinence, pubic pain, L SI pain with History of Current Condition 6 weeks , 8 lb vaginal , one suture on left labia. She started having urine leakage at 14 weeks and she likes to run. She started having to stop frequently, she continued running 28 weeks pregnanct. She would like to get back to running 4-5 miles. With previous PT she noted that she was tight in her pelvic floor. Every other day or every 2 days she has a bowel movement. She will feel pelvic pressure with bowel movement. SHe does use a squatty potty. She had a lot of hip pain and tightness during and she does have stretches. SHe does have some leakage with sneezing and coughing and occasionally with jumping. SHe had a IUD placed on and intercourse 3 days later. She noted pain and bleeding 24 hours afterwards. She felt right sided vaginal pain afterwards. SHe does have some pubic bone pain that she notices after a walk. SHe did have some left sided SI pain with running. 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 No bleeding. PT-OP-F Manual Assessment Start: 11/07/23 09:04 Freq: Status: Active Protocol: Document 11/07/23 09:45 [facility] (Rec: 11/07/23 12:57 [facility] [id number]) Manual Assessments Soft Tissue Assessment Soft Tissue Mobility Assessment vaginal tissue still healing from with small amounts of bleeding from the right vaginal side wall. right sided iliopsoas and adductor muscle tightness Joint Mobility Assessment Joint Mobility Assessment tenderness at the pubic symphysis and pt reports soreness here after walking PT-OP-I Pelvic Floor Start: 11/07/23 09:04 Freq: Status: Active Protocol: Document 12/12/23 09:45 [facility] (Rec: 12/12/23 10:42 [facility] [id number]) Pelvic Floor Assessment Pelvic Clock Pelvic Clock 12-3 Atrophy Pelvic Clock 3-6 Atrophy Pelvic Clock 6-9 Atrophy Pelvic Clock 9-12 Atrophy Pelvic Clock Other right lateral wall still healing from vaginal delivery 6 weeks ago, pt had intercourse approx 4 days ago and experienced pain and then has had some bleeding following PT-OP-K Range of Motion Start: 11/07/23 13:19 Freq: Status: Active Protocol: Document 11/07/23 09:45 [facility] (Rec: 11/07/23 13:20 [facility] [id number]) Hip Goniometric Range of Motion Hip ROM Limitations Hip ROM Limitations Soft Tissue Tightness Comments right sided + stef test for iliopsoas tightness adductor guarding and tightness on the right side PT-OP-Q Treatments Start: 11/07/23 09:04 Freq: Status: Active Protocol: Document 01/22/24 15:09 [facility] (Rec: 01/22/24 16:09 [facility] [id number]) Therapeutic Exercises Supine Exercises quick flicks Reps/Minutes x 10 reps holding 2 sec and relaxing 2 sec EMG biofeedback templates for coordination and eccentric control Reps/Minutes 8 min resting tone Supine Exercise Name 3-4 uv max pelvic floor long holds Reps/Minutes 10 second hold x 10 sec rest Comments 12.7 and 45.3 Standing Exercises mini jumps with pelvic floor engagement Reps/Minutes x 5 sit-stand with pelvic floor engagement Reps/Minutes every time pt stands from a chair quick pelvic floor contractions in standing Reps/Minutes x 10 reps standing 5 second pelvic floor holds Reps/Minutes 11.1 and 25 max PT-OP-T Assessment and Plan Start: 11/07/23 09:04 Freq: Status: Active Protocol: Document 01/22/24 15:09 [facility] (Rec: 01/22/24 16:09 [facility] [id number]) Physical Therapy Assessment Goals 3 Impairment SI joint instability with c/o pain at the pubic symphysis after walking Penitentiary Goal (LTG) With improved SI stability Tita is no longer c/o pubic symphysis pain after walking or as she returns to running excellent progress, no pubic pain with walking now and Tita will work towards progression to running next LTG Duration 12 weeks 2 Impairment Decreased pelvic floor endurance Short Term Goal (STG) Tita is able to sustain a pelvic floor contraction x 10 seconds in supine slowly improving STG Duration 4 [facility] Goal (LTG) Tita is able to sustain a pelvic floor contraction in standing x5 seconds goal not yet met LTG Duration 12 weeks 1 Impairment core weakness with urinary leakage limiting her abilty to run Short Term Goal (STG) Tita is educated on a home stabilization program to support the bladder and improve core strength excellent progress STG Duration 4 weeks Penitentiary Goal (LTG) Tita is able to return to a running program without urinary leakage pt has not yet returned to running LTG Duration 12 weeks Assessment Summary Assessment 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 She was able to begin standing pelvic floor contractions today and hold for 5 seconds. She was also able to do her quick pelvic floor contractions in standing today. I added in sit-stand with pelvic floor and standing squats with pelvic floor engagement Physical Therapy Plan Frequency and Duration Frequency of Treatment 1x/Week Duration of treatment (weeks) 12 Plan of Care Start Date 12/12/23 Plan of Care End Date 03/05/24 Therapeutic Interventions Therapeutic Interventions Home Exercise Program,Manual Therapy,Neuromuscular Re- education,Self-Care/Home Management,Therapeutic Exercises Modalities Biofeedback Next Visit Focus/Plan Next Note Type Treatment Note Next Visit Plan Continue with EMG biofeedback next visit and review standing exercises. Check in with how Tita did with running activities. Look at single leg squats next visit
--- NOTE | 2024-02-27 12:11 | PT.OTN ---
Current Diagnoses Other specified disorders of muscle (02/27/24) Pelvic muscle wasting (02/27/24) Unspecified urinary incontinence (02/27/24) Physical Therapy Treatment Note PT-OP-A Visit Information Start: 11/07/23 09:04 Freq: Status: Active Protocol: Document 02/27/24 11:19 [facility] (Rec: 02/27/24 12:10 COUNT INCLUDES THE [facility] [id number]) Out-Patient Physical Therapy Visit Information Visit Information Visit Type Treatment Note Visit Start Time 11:19 Visit Stop Time 12:00 Visit Number 8 PT-OP-B Current Condition Start: 11/07/23 09:04 Freq: Status: Active Protocol: Document 11/07/23 09:45 AM[facility] (Rec: 11/07/23 10:20 COUNT INCLUDES THE [facility] [id number]) Current Condition History of Current Condition Onset Date with Current Complaints urinary stress incontinence, pubic pain, L SI pain with History of Current Condition 6 weeks , 8 lb vaginal , one suture on left labia. She started having urine leakage at 14 weeks and she likes to run. She started having to stop frequently, she continued running 28 weeks pregnanct. She would like to get back to running 4-5 miles. With previous PT she noted that she was tight in her pelvic floor. Every other day or every 2 days she has a bowel movement. She will feel pelvic pressure with bowel movement. SHe does use a squatty potty. She had a lot of hip pain and tightness during and she does have stretches. SHe does have some leakage with sneezing and coughing and occasionally with jumping. SHe had a IUD placed on and intercourse 3 days later. She noted pain and bleeding 24 hours afterwards. She felt right sided vaginal pain afterwards. SHe does have some pubic bone pain that she notices after a walk. SHe did have some left sided SI pain with running. Treatment Goals Patient/Caregiver Goals Tita's goals include being able to return to running without leakage Current Functional Impairments (Reported) Functional Limitations- Recreation/ unable to run at this time due Hobbies to weakness, urinary leakage PT-OP-C Subjective Start: 11/07/23 09:04 Freq: Status: Active Protocol: Document 02/27/24 11:19 [facility] (Rec: 02/27/24 12:10 COUNT INCLUDES THE [facility] [id number]) OP-PT Subjective Patient Comments Patient Comments pt notes she has been able to do a 1.5 to 2 miles then she has to stop to void, she is up to 3 miles. No pelvic pressure when running other than when she has to void. PT-OP-F Manual Assessment Start: 11/07/23 09:04 Freq: Status: Active Protocol: Document 11/07/23 09:45 [facility] (Rec: 11/07/23 12:57 [facility] [id number]) Manual Assessments Soft Tissue Assessment Soft Tissue Mobility Assessment vaginal tissue still healing from with small amounts of bleeding from the right vaginal side wall. right sided iliopsoas and adductor muscle tightness Joint Mobility Assessment Joint Mobility Assessment tenderness at the pubic symphysis and pt reports soreness here after walking PT-OP-I Pelvic Floor Start: 11/07/23 09:04 Freq: Status: Active Protocol: Document 12/12/23 09:45 AM[facility] (Rec: 12/12/23 10:42 [facility] [id number]) Pelvic Floor Assessment Pelvic Clock Pelvic Clock 12-3 Atrophy Pelvic Clock 3-6 Atrophy Pelvic Clock 6-9 Atrophy Pelvic Clock 9-12 Atrophy Pelvic Clock Other right lateral wall still healing from vaginal delivery 6 weeks ago, pt had intercourse approx 4 days ago and experienced pain and then has had some bleeding following PT-OP-K Range of Motion Start: 11/07/23 13:19 Freq: Status: Active Protocol: Document 11/07/23 09:45 AM[facility] (Rec: 11/07/23 13:20 [facility] [id number]) Hip Goniometric Range of Motion Hip ROM Limitations Hip ROM Limitations Soft Tissue Tightness Comments right sided + stef test for iliopsoas tightness adductor guarding and tightness on the right side PT-OP-Q Treatments Start: 11/07/23 09:04 Freq: Status: Active Protocol: Document 02/27/24 11:19 AM[facility] (Rec: 02/27/24 12:10 [facility] [id number]) Therapeutic Exercises Supine Exercises quick flicks Reps/Minutes 2 sec on 2 sec off EMG biofeedback templates for coordination and eccentric control Reps/Minutes 5 min Comments worked on eccentric control in standing resting tone Supine Exercise Name 3.5 uv pelvic floor long holds Reps/Minutes 10 second hold x 10 sec rest Comments 15.2 and 28.7 TA with march Reps/Minutes x 20 reps Comments progressed to heel slides Standing Exercises quick pelvic floor contractions in standing Reps/Minutes x 10 reps standing 5 second pelvic floor holds Reps/Minutes average 15 today, good improvement PT-OP-T Assessment and Plan Start: 11/07/23 09:04 Freq: Status: Active Protocol: Document 02/27/24 11:19 COUNT INCLUDES THE [facility] (Rec: 02/27/24 12:10 COUNT INCLUDES THE [facility] [id number]) Physical Therapy Assessment Goals 3 Impairment SI joint instability with c/o pain at the pubic symphysis after walking Gastrointestinal Technician Goal (LTG) With improved SI stability Tita is no longer c/o pubic symphysis pain after walking or as she returns to running GOAL MET LTG Duration 12 weeks 2 Impairment Decreased pelvic floor endurance Short Term Goal (STG) Tita is able to sustain a pelvic floor contraction x 10 seconds in supine GOAL MET STG Duration 4 Shelter Goal (LTG) Tita is able to sustain a pelvic floor contraction in standing x5 seconds Goal Met LTG Duration 12 weeks 1 Impairment core weakness with urinary leakage limiting her abilty to run Short Term Goal (STG) Tita is educated on a home stabilization program to support the bladder and improve core strength Goal met STG Duration 4 weeks Shelter Goal (LTG) Tita is able to return to a running program without urinary leakage goal met LTG Duration 12 weeks Assessment Summary Assessment Tita has progressed well with pelvic floor strengthening. She is able to run up to 3 miles now without leaking. She does need to stop about a mile into her run to void. We did talk about bladder irritants as she is drinking a lot of coffee right now as she is single parenting and working. When her returns from deployment she notes she may be able to cut back on coffee and this may help decrease her need to void when running. At this point she has met all her PT goals and she will continue to work on her home strenghtening program. She will be discharged at this time Physical Therapy Plan Discharge Physical Therapy Discharge Reasons Goals Met
== END 2024-03-07 08:56 | disposition home or self-care (01) ==
LOC: PHYS 11:15
PROVIDERS: Family Provider Family Medicine; PCP Family Medicine; Referring Provider Obstetrics & Gynecology; Visit Provider Obstetrics & Gynecology
DX: M62.89 Other specified disorders of muscle (principal); R32 Unspecified urinary incontinence; N81.84 Pelvic muscle wasting
CPT/HCPCS: 97110; 97112; 97535

== ENCOUNTER → 2024-10-16 08:43 | Outpatient (CLI) | payer OTHER, SELFPAY ==
--- NOTE | 2024-10-16 15:29 | ST.SWALLOW ---
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 Wood. Pt reported c/o difficulty swallowing along with a chronic cough and a sense of globus. She described her swallowing as being difficult with solid foods, especially meats and pills. Additionally she will have a cough reaction at night between 3 and 5 am that can be hard coughing. Pt noted that she has been eating a snack right before bed around 9pm. Pt has PMH of GERD related to , allergies and PND. She recently had a CT of her sinuses that noted multifocal paranasal sinus disease, which may be contributing to her chronic cough and PND. Pt's is in the [employer]. They are being restationed to [place] and will be moving within the next week. Subjective Observations Pt was seated in the fluoroscopy chair with directions and procedures described for her. She indicated she understood and agreed to proceed. Patient Positioning Position View Lat-A/P Imaging Lateral View Textures Administered Trials Presented Thin Liquid via Spoon (IDDSI 0 ),Thin Liquid via Cup (IDDSI 0 ),Extremely Thick Liquid via Spoon (IDDSI 4),Regular (IDDSI 7) Barium Tablet Yes The IDDSI Framework Protocol: IDDSI.1 Oral Impairment Source: The Modified Barium Swallow Impairment Profile (MBSImP??) Lip Closure No labial escape Tongue Control During Bolus Hold Cohesive bolus between tongue to palatal seal Bolus Preparation/Mastication Timely & efficient chewing & mashing Bolus Transport/Lingual Motion Brisk tongue motion Oral Residue Complete oral clearance Initiation of Pharyngeal Swallow Bolus head at posterior angle of ramus (first hyoid excursion) Additional Oral Impairment Observations *OME and DKS were observed to be WNL. *Dentition natural and in good hygiene *Mastication observed with rotary chew pattern. *Good bolus formation, control and AP transition. Oral phase WNL Pharyngeal Impairment Source: The Modified Barium Swallow Impairment Profile (MBSImP??) Soft Palate Elevation No bolus between soft palate & pharyngeal wall Laryngeal Elevation Comp.sup.move.thyroid cart.w/ comp.approx.arytenoids to epiglot petiole Anterior Hyoid Excursion Complete anterior movement Epiglottic Movement Complete inversion Laryngeal Vestibular Closure Complete; no air/contrast in laryngeal vestibule Pharyngeal Stripping Wave Present - complete Pharyngoesophageal Segment Opening Complete distention & complete duration; no obstruction of flow Tongue Base Retraction No contrast between tongue base & posterior pharyngeal wall Pharyngeal Residue Complete pharyngeal clearance Additional Pharyngeal Impairment Pharyngeal phase WNL Observations A/P View Textures Administered Trials Presented Thin Liquid via Cup (IDDSI 0), Moderately Thick Liquid via Cup (IDDSI 3),Regular (IDDSI 7 ) The IDDSI Framework Protocol: IDDSI.1 A/P View Observations Esophageal Clearance Upright Position Esophageal retention Vocal Fold Function Good Additional A-P Observations *Esophageal retention of contrast from prior trials noted at base of sternum to LES - partially cleared with water wash *Thin barium cleard to the stomach in timely manner *Calibrated barium tablet stopped at aortic arch, requiring several swalllow of water to dislodge. Pt reported globus sensation *Barium tablet stopped at LES. Despite several swallows of water, the tablet did not pass to the stomach before stopping MBSS (pt again described globus sensation) Clinical Impressions Dysphagia Type Esophageal Findings Pt presented with oropharyngeal swallow phases WNL. Esophageal retention of solid and semisolid contrast as well as a barium tablet indicate possible esophageal dysfunction. Referral to GI recommended for assessment. Patient Appropriate for Therapy No Recommendations Diet Comments No diet change at this time Treatment Plan Recommended Referrals GI Consult
== END ==
LOC: RAD 08:44
PROVIDERS: Family Provider Family Medicine; Referring Provider Otolaryngology; Visit Provider Otolaryngology
DX: R13.10 Dysphagia, unspecified (principal)
CPT/HCPCS: 74230; 92611